=== PATIENT | female | born 1950 | race Two or more races ===

== ENCOUNTER 2016-12-04 11:48 | Emergency (ER) | payer OTHER ==
[~2016-12-04] VITALS: Ht 152.4 cm; Wt 49.9 kg
[~2016-12-04 11:48] MED LIST: ACET-1079; ATEN-60 PO; DOCU-94 PO; INSLANTI SC; INSUPOW; LISI10TA6; METF-312 PO; NITR0.1D10 SL; SIMV-8 PO; [UNRECOGNIZED DRUG - CODE] PO
[2016-12-04 13:37] VITALS: BP 114/65
== END 2016-12-04 14:37 | disposition home or self-care (01) ==
LOC: ER 11:51
DX: T78.40XA Allergy, unspecified, initial encounter (principal); F17.210 Nicotine dependence, cigarettes, uncomplicated; M19.90 Unspecified osteoarthritis, unspecified site; I11.0 Hypertensive heart disease with heart failure; I50.9 Heart failure, unspecified; J44.9 Chronic obstructive pulmonary disease, unspecified; E11.9 Type 2 diabetes mellitus without complications; K21.9 Gastro-esophageal reflux disease without esophagitis; I25.2 Old myocardial infarction; Z98.61 Coronary angioplasty status; Z88.0 Allergy status to penicillin; Z88.1 Allergy status to other antibiotic agents; Z88.6 Allergy status to analgesic agent; Z88.8 Allergy status to other drugs, medicaments and biological substances